=== PATIENT | male | born 1955 | race Caucasian/White ===

== ENCOUNTER 2020-04-25 09:31 | Emergency (ER) | payer OTHER ==
--- OUTSIDE RECORDS SUMMARY | 2020-04-25 09:37 | XMS ---
:1955 Author Organization [facility] Support Name Relationship Address Phone JEANNE FLORES Unavailable [address] [place] [address] GOLDIE MITCHELL [address] [place] [address] Re-disclosure Warning The records that you are about to access may contain information from federally- assisted alcohol or drug abuse programs. If such information is present, then the following federally mandated warning applies: This information has been disclosed to you from records protected by federal confidentiality rules (42 CFR part 2). The federal rules prohibit you from making any further disclosure of this information unless further disclosure is expressly permitted by the written consent of the person to whom it pertains or as otherwise permitted by 42 CFR part 2. A general authorization for the release of medical or other information is NOT sufficient for this purpose. The Federal rules restrict any use of the information to criminally investigate or prosecute any alcohol or drug abuse patient.The records that you are about to access may contain highly sensitive health information, the redisclosure of which is protected by Article 27-F of the [facility] Public Health law. If you continue you may haveaccess to information: Regarding HIV / AIDS; Provided by facilities licensed or operated by the [facility] Office of Mental Health; or Provided by the [facility] Office for People With Developmental Disabilities. If such information is present, then the following [facility] mandated warning applies: This information has been disclosed to you from confidential records which are protected by state law. State law prohibits you from making any further disclosure of this information without the specific written consent of the person to whom it pertains, or as otherwise permitted by law. Any unauthorized further disclosure in violation of state law may result in a fine or fpc sentence or both. A general authorization for the release of medical or other information is NOT sufficient authorization for further disclosure. Insurance Providers Payer Policy type Policy ID Covered Covered green party's Policy Pl an name / Coverage green party ID relationship to [place] [facility] [employer] [place] [employer] [place] [id number] [facility] [id number] (PPO)
--- NOTE | 2020-04-25 10:18 | TELE ---
HPI Do you have fever,cough or shortness of breath?: No - General Reason For Visit: COVID 19 TEST History Source: Patient Past History - Medical History Allergies/Adverse Reactions: Allergies Allergy/AdvReac Type Severity Reaction Status Date / Time No Known Allergies Allergy Unverified 08/07/12 17:25 Home Medications: Ambulatory Orders Aspirin [Aspir 81] 81 mg PO DAILY 08/07/12 Review of Systems - Review of Systems Constitutional: No: Fever Respiratory: No: Cough, Shortness of Breath *Physical Exam - Physical Exam HEENT: positive: Normal Voice - Medical Decision Making 04/25/20 10:17 64-year-old male no significant history requesting further testing prior to visiting family member longterm. Patient denies any symptoms Patient to proceed to [facility] for COVID testing. Order placed Discharge Diagnosis at time of Disposition: Encounter by telehealth for suspected COVID-19 - Referrals Follow-up Referral(s): Chavez Urrutia MD [Primary Care Provider] - - Patient Instructions - Discharge Disposition: HOME
== END 2020-04-25 10:18 | disposition home or self-care (01) ==
LOC: JVIRT 09:31
DX: Z03.818 Encounter for observation for suspected exposure to other biological agents ruled out (principal)
CPT/HCPCS: C9803; Q3014-GT; U0003